=== PATIENT | male | born 1975 | race Caucasian/White ===

== ENCOUNTER 2024-06-05 13:25 | Emergency (ER) | payer MEDICAID ==
[~2024-06-05] VITALS: Ht 188 cm; Wt 97.1 kg
[2024-06-05 13:34] VITALS: BP 156/93; PULSE 108; RESP 18; TEMP 98.6; O2SAT 97
[2024-06-05] MEDS ORDERED: CLIN300C2 PO (15:41)
== END 2024-06-05 15:51 | disposition home or self-care (01) ==
LOC: MED 13:25
DX: K04.7 Periapical abscess without sinus (principal); L03.211 Cellulitis of face; E11.9 Type 2 diabetes mellitus without complications; Z79.899 Other long term (current) drug therapy
CPT/HCPCS: 99283